=== PATIENT | male | born 1955 | race Caucasian/White ===

== ENCOUNTER 2019-08-10 07:58 | Emergency (ER) | payer OTHER, MEDICARE ==
[~2019-08-10] VITALS: Ht 177.8 cm; Wt 113.4 kg
[2019-08-10] MEDS ORDERED: METF500 PO (08:12)
== END 2019-08-10 10:45 | disposition home or self-care (01) ==
LOC: ER 07:58
DX: S09.90XA Unspecified injury of head, initial encounter (principal); S16.1XXA Strain of muscle, fascia and tendon at neck level, initial encounter; S40.012A Contusion of left shoulder, initial encounter; V59.9XXA Occupant (driver) (passenger) of pick-up truck or van injured in unspecified traffic accident, initial encounter; Z79.84 Long term (current) use of oral hypoglycemic drugs; E11.9 Type 2 diabetes mellitus without complications
CPT/HCPCS: 70450; 71046; 72125; 73030; 90471; 90714; 96374; 99284-25; J1885; L0160